=== PATIENT | female | born 1995 | race Hispanic/Latino ===

== ENCOUNTER 2022-01-10 18:00 | Emergency (ER) | payer SELFPAY ==
[2022-01-10] MEDS ORDERED: ASPIRIN 325 MG TAB PO ONE (18:14)
--- NOTE | 2022-01-10 18:42 | XRay Report ---
XR chest routine 2V INDICATION / CLINICAL INFORMATION: chest pain, smoker. COMPARISON: None available. FINDINGS: SUPPORT DEVICES: None. HEART /PULMONARY VASCULATURE: No significant abnormality. LUNGS / PLEURA: No significant pulmonary or pleural abnormality. No pneumothorax. ADDITIONAL FINDINGS: No significant additional findings. IMPRESSION: 1. No acute findings. Signer Name: Neal Riojas MD Signed: 01/10/2022 6:37 PM Workstation Name: [id number]
[2022-01-10 19:08] LABS: Basophils % (Auto) 0.5 % (0.0-1.8); Eosinophils # (Auto) 0.1 K/mm3 (0.0-0.4); Eosinophils % (Auto) 0.9 % (0.0-4.3); Hematocrit 39.4 % (30.3-42.9); Hemoglobin 13.2 gm/dl (10.1-14.3); Lymphocytes # (Auto) 1.9 K/mm3 (1.2-5.4); Lymphocytes % (Auto) 30.6 % (13.4-35.0); Mean Corpuscular HGB Conc 33 % (30-34); Mean Corpuscular Volume 94 fl (79-97); Monocytes # (Auto) 0.5 K/mm3 (0.0-0.8); Monocytes % (Auto) 8.1 % (0.0-7.3); Platelet Count 169 K/mm3 (140-440); Red Blood Count 4.18 M/mm3 (3.65-5.03); Red Cell Distribution Width 12.1 % (13.2-15.2)
[2022-01-10 19:29] LABS: Alanine Aminotransferase 15 units/L (7-56); Albumin 4.9 g/dL (3.9-5); Blood Urea Nitrogen 13 mg/dL (7-17); Calcium 9.4 mg/dL (8.4-10.2); Hemolysis Index 7
[2022-01-10 19:32] LABS: BUN/Creatinine Ratio 22
[2022-01-11] MEDS ORDERED: predniSONE 50 MG TAB PO ONE (00:15)
[2022-01-11] MEDS ORDERED: traMADol 50 MG TAB PO ONE (00:17)
[2022-01-11] MEDS ORDERED: ONDANSETRON 4 MG ODT TAB PO ONE (00:17)
--- NOTE | 2022-01-11 00:44 | Emergency Department Report ---
ED Chest Pain HPI - General Chief Complaint: Chest Pain Stated Complaint: CHEWT PAIN/HBP Source: patient Mode of arrival: Ambulatory Limitations: No Limitations - History of Present Illness Initial Comments: Patient is a 26-year-old female with a history of tobacco abuse, GERD and asthma who presents to the ED with left-sided chest pain intermittently for the last 8 hours. Patient states that the pain is intermittent and worse with inhalation. Patient states that when present the pain radiates to the left arm. Patient denies dizziness, syncope, traumatic injury, cough, sore throat, nausea and vomiting or diaphoresis, nasal and sinus congestion, heavy lifting, neck pain, abdominal pain, back pain, headache or change in vision. MD Complaint: chest pain (Left-sided chest pain), other (Pleuritic chest pain) -: Sudden, hour(s) (8) Onset: during rest, during exertion Pain Location: left chest Pain Radiation: LUE Severity: severe Severity scale (0 -10): 7 Quality: sharp Consistency: intermittent Improves With: nothing Worsens With: inspiration, palpation, movement re: denies: nausea, vomting, diaphoresis, dyspnea, sense of impending doom Other Symptoms: denies: cough, fever, syncope, rash, acid taste in mouth, palpitations, burping Treatments Prior to Arrival: none Aspirin use within the Past 7 Days: (0) No - Related Data On Oral Contraceptives: No Previous Rx's Medication Instructions Recorded Last Taken Type Acetaminophen [Tylenol] 500 mg PO Q6HR PRN #30 tablet 01/11/22 Unknown Rx traMADoL [Ultram] 50 mg PO Q6HR PRN #10 tablet 01/11/22 Unknown Rx Allergies Allergy/AdvReac Type Severity Reaction Status Date / Time ibuprofen [From Motrin] Allergy Nausea Verified 01/10/22 18:09 Heart Score - HEART Score History: Slightly suspicious EKG: Normal Age: < 45 Risk factors: 1-2 risk factors Troponin: < normal limit HEART Score: 1 - EKG Read Time Time EKG Completed: 18:05 EKG Read Time: 18:06 - Critical Actions Critical Actions: 0-3 pts:0.9-1.7%risk of adverse cardiac event.Candidate for discharge ED Review of Systems ROS: Stated complaint: CHEWT PAIN/HBP Other details as noted in HPI Constitutional: denies: chills, fever Eyes: denies: eye pain, eye discharge, vision change ENT: denies: ear pain, throat pain Respiratory: denies: cough, shortness of breath, wheezing Cardiovascular: chest pain (Left-sided chest pain). denies: palpitations Endocrine: no symptoms reported Gastrointestinal: denies: abdominal pain, nausea, diarrhea Genitourinary: denies: urgency, dysuria, discharge Musculoskeletal: denies: back pain, joint swelling, arthralgia Skin: denies: rash, lesions Neurological: denies: headache, weakness, paresthesias Psychiatric: denies: anxiety, depression Hematological/Lymphatic: denies: easy bleeding, easy bruising ED Past Medical Hx - Past Medical History Previous Medical History?: Yes Hx GERD: Yes Hx Asthma: Yes - Surgical History Past Surgical History?: Yes Additional Surgical History: Tear duct opening 1994, Tubes in ears - Medications Home Medications: Home Medications Medication Instructions Recorded Confirmed Last Taken Type Acetaminophen [Tylenol] 500 mg PO Q6HR PRN #30 tablet 01/11/22 Unknown Rx traMADoL [Ultram] 50 mg PO Q6HR PRN #10 tablet 01/11/22 Unknown Rx ED Physical Exam - General Limitations: No Limitations General appearance: alert, in no apparent distress - Head Head exam: Present: atraumatic, normocephalic, normal inspection - Eye Eye exam: Present: normal appearance, PERRL, EOMI Pupils: Present: normal accommodation - ENT ENT exam: Present: normal exam, normal orophraynx, mucous membranes moist, TM's normal bilaterally, normal external ear exam - Neck Neck exam: Present: normal inspection, full ROM. Absent: tenderness - Respiratory Respiratory exam: Present: normal lung sounds bilaterally, chest wall tenderness (Palpable left-sided chest wall tenderness). Absent: respiratory distress, wheezes, rales, rhonchi, accessory muscle use, decreased breath sounds, prolonged expiratory - Cardiovascular Cardiovascular Exam: Present: regular rate, normal rhythm, normal heart sounds. Absent: systolic murmur, diastolic murmur, rubs, gallop - GI/Abdominal GI/Abdominal exam: Present: soft, normal bowel sounds. Absent: tenderness, guarding, rebound, hyperactive bowel sounds, hypoactive bowel sounds, organomegaly, mass - Extremities Exam Extremities exam: Present: normal inspection, full ROM, normal capillary refill. Absent: tenderness - Back Exam Back exam: Present: normal inspection, full ROM. Absent: tenderness, CVA tenderness (L), muscle spasm, paraspinal tenderness, vertebral tenderness - Neurological Exam Neurological exam: Present: alert, oriented X3, CN II-XII intact, normal gait, reflexes normal - Psychiatric Psychiatric exam: Present: normal affect, normal mood - Skin Skin exam: Present: warm, dry, intact, normal color. Absent: rash ED Course Vital Signs 01/10/22 18:10 Temperature 98.6 F Pulse Rate 81 Respiratory 16 Rate Blood Pressure 142/90 O2 Sat by Pulse 96 Oximetry BRANDT score - Brandt Score Age > 65: (0) No Aspirin use within the Past 7 Days: (0) No 3 or more CAD Risk Factors: (0) No 2 or more Angina events in past 24 hrs: (0) No Known CAD with more than 50% Stenosis: (0) No Elevated Cardiac Markers: (0) No ST Deviation Greater than 0.5mm: (0) No BRANDT Score: 0 ED Medical Decision Making - Lab Data Result diagrams: 01/10/22 18:51 01/10/22 18:51 - EKG Data EKG shows normal: sinus rhythm Rate: normal - EKG Data Interpretation: normal EKG 01/11/22 00:42 EKG shows normal sinus rhythm with a ventricular rate of [address] or T wave abnormalities. - Radiology Data Radiology results: report reviewed, [place] [address] XRay Report Signed Patient: RAMESH TOWNSEND MR#: [id number] : 1995 Acct:[id number] Age/Sex: 26 / F ADM Date: 01/10/22 Loc: ED Attending Dr: Ordering Physician: NEGRO PATEL MD Date of Service: 01/10/22 Procedure(s): XR chest routine 2V Accession Number(s): [id number] cc: ED MD JORGE Fluoro Time In Minutes: XR chest routine 2V INDICATION / CLINICAL INFORMATION: chest pain, smoker. COMPARISON: None available. FINDINGS: SUPPORT DEVICES: None. HEART /PULMONARY VASCULATURE: No significant abnormality. LUNGS / PLEURA: No significant pulmonary or pleural abnormality. No pneumothorax. ADDITIONAL FINDINGS: No significant additional findings. IMPRESSION: 1. No acute findings. Signer Name: Pop Vega MD Signed: 01/10/2022 6:37 PM Workstation Name: [id number] Transcribed By: JS Dictated By: POP VEGA MD Electronically Authenticated By: POP VEGA MD Signed Date/Time: 01/10/221836 DD/ 36 TD/TT: - Medical Decision Making This is a 26-year-old female with a history of tobacco abuse, GERD and asthma who presents to the ED with left-sided chest pain intermittently for the last 8 hours. Patient states that the pain is intermittent and worse with inhalation. Patient states that when present the pain radiates to the left arm. In the ED, patient is alert and oriented x3 and is not in any distress. EKG shows normal sinus rhythm with a ventricular rate of [address] or T wave abnormalities. Chest x-ray showed no acute cardiopulmonary abnormalities or pneumonitis. All lab test results were reviewed and are all nonactionable including initial and 3-hour repeat troponin levels. Patient's heart score is 1, and patient is PERC negative per Wells criteria. Patient was treated for pain in the ED. Patient's symptoms are likely musculoskeletal. Patient was discharged home on medications and advised to follow-up with her primary care physician in 5 to 7 days for reevaluation or return to the ED immediately if symptoms get worse. - Differential Diagnosis PE; pneumonia; asthma; muscle strain; costochondritis; ACS; Critical care attestation.: If time is entered above; I have spent that time in minutes in the direct care of this critically ill patient, excluding procedure time. ED Disposition Clinical Impression: Atypical chest pain, Muscle strain of anterior chest wall, Acute costochondritis Disposition: 01 HOME / SELF CARE / HOMELESS Is pt being admited?: No Does the pt Need Aspirin: No Condition: Stable Instructions: Muscle Strain, [id number], Costochondritis, [id number], Nonspecific Chest Pain, Adult, [id number]-sp-Irbw, Chest Wall Pain, [id number]-td-Nudp Additional Instructions: All lab test results were reviewed and are all nonactionable. EKG shows normal sinus rhythm with a ventricular rate of [address] or T wave abnormalities. Chest x-ray showed no acute cardiopulmonary abnormalities or pne umonitis. Your symptoms are likely musculoskeletal as your heart score is low suspect any acute coronary syndrome. Therefore take medication as needed for pain, drink plenty of fluids, follow-up with your primary care physician in 5 to 7 days for reevaluation or return to the ED immediately if symptoms get worse. Consider tobacco cessation to improve any symptoms. Prescriptions: Acetaminophen [Tylenol] 500 mg PO Q6HR PRN #30 tablet PRN Reason: Pain , Severe (7-10) traMADoL [Ultram] 50 mg PO Q6HR PRN #10 tablet PRN Reason: Pain Referrals: [facility] [Provider Group] - 7-10 days Forms: Work/School Release Form(ED) Time of Disposition: 00:46 Print Language: UGANDAN
[2022-01-11 01:13] VITALS: BP 138/86
--- NOTE | 2022-01-11 10:46 | Electrocardiograph Report ---
[facility] Test Date: 2022-01-10 Test Time: 18:05:20 Pat Name: RAMESH TOWNSEND Department: Room: Gender: F [employer]: UNIQUE : 1995 Requested By: FERNANDO ASHTON Order Number: [id number] Reading MD: Fredrick Chew Measurements Intervals [place] Rate: 89 P: 85 LA: 137 QRS: 76 QRSD: 79 T: 30 QT: 376 QTc: 459 Interpretive Statements Sinus rhythm Probable left atrial enlargement No previous ECG available for comparison Electronically Signed On 01-11-2022 10:46:36 EDT by Fredrick Chew
== END 2022-01-11 01:31 | disposition home or self-care (01) ==
LOC: ED 18:00
DX: S29.011A Strain of muscle and tendon of front wall of thorax, initial encounter (principal); M94.0 Chondrocostal junction syndrome [Tietze]; J45.909 Unspecified asthma, uncomplicated; K21.9 Gastro-esophageal reflux disease without esophagitis; Z79.899 Other long term (current) drug therapy; Z88.6 Allergy status to analgesic agent; X58.XXXA Exposure to other specified factors, initial encounter; Y93.89 Activity, other specified; Y92.89 Other specified places as the place of occurrence of the external cause; Y99.8 Other external cause status
CPT/HCPCS: 36415; 71046; 80053; 84484; 85025; 93005; 99284; J7512; J3490; Q0162